=== PATIENT | female | born 2000 | race Asian ===

== ENCOUNTER 2021-10-15 09:18 | Outpatient (CLI) | payer OTHER, SELFPAY ==
[2021-10-15 11:49] LABS: Cholesterol* 134 mg/dL (90-199); Glucose* 92 mg/dL (60-115); Triglycerides* 144 mg/dL (40-149)
[2021-10-15 12:00] LABS: Vitamin D 25 Hydroxy* 31 ng/mL (30-80)
[2021-10-15 12:05] LABS: HDL Cholesterol* 46 mg/dL (>=50); LDL Cholesterol Calculated 59 mg/dL (<100)
[2021-10-15 12:36] LABS: Vitamin B12* 278 pg/mL (243-894)
== END 2021-10-15 09:19 | disposition home or self-care (01) ==
PROVIDERS: PCP Family Medicine; Visit Provider Family Medicine
DX: Z01.419 Encounter for gynecological examination (general) (routine) without abnormal findings (principal); Z13.1 Encounter for screening for diabetes mellitus; Z78.9 Other specified health status; Z13.6 Encounter for screening for cardiovascular disorders
CPT/HCPCS: 80061; 82306; 82607; 82728; 82947

== ENCOUNTER 2022-11-04 15:23 | Outpatient (CLI) | payer OTHER, SELFPAY | END 2022-11-04 15:24 | disposition home or self-care (01) | PROVIDERS: PCP Family Medicine; Visit Provider Family Medicine | DX: E53.8 Deficiency of other specified B group vitamins (principal); R74.8 Abnormal levels of other serum enzymes; Z11.1 Encounter for screening for respiratory tuberculosis; Z78.9 Other specified health status | CPT/HCPCS: 80061; 82607; 86480 ==